=== PATIENT | male | born 1975 | race Caucasian/White ===

== ENCOUNTER 2021-02-28 06:26 | Emergency (ER) | payer MEDICAID, SELFPAY ==
[2021-02-28] VITALS (9 sets, daily range): BP systolic 98–126; BP diastolic 58–79; PULSE 82–92; RESP 15–16; TEMP 36.5; O2SAT 96–98; BMI 22.3
--- NOTE | 2021-02-28 06:33 | HMH.EDGENADL ---
ED Disposition Clinical Impression: Heroin overdose Qualifiers: Encounter type: initial encounter Injury intent: accidental or unintentional Qualified Code(s): T40.1X1A - Poisoning by heroin, accidental (unintentional), initial encounter Disposition: Home, Self-Care Condition on Discharge: Good Instructions: DI for Drug Overdose in Adults Additional Instructions: Follow-up with your primary care provider, call for appointment. Referrals: Provider,Referral, [Primary Care Provider] - - Critical Care Critical Care Time: No Attestation: On , the high probability of a clinically significant, sudden or life threatening deterioration of the following system(s) required my full and direct attention, intervention and personal management. The time I documented below is in addition to time spent performing reported procedures but includes the following listed in this critical care notation. Medical Decision Making - Gurvinder Inquiry Pt receiving controlled substance: No Vital Signs: 02/28/21 06:15 Temperature 97.7 F Temperature Source Oral Pulse Rate [Right] 92 H Respiratory Rate 15 Blood Pressure [Right Arm] 102/67 L Blood Pressure Mean [Right Arm] 78 Blood Pressure Source [Right Arm] Automatic Cuff 02 Sat by Pulse Oximetry 97 Oxygen Delivery Method Room Air Orders (Tests/Meds): ED MEDICATIONS Discontinued Medications Generic Name Dose Route Start Last Admin Trade Name Freq PRN Reason Stop Dose Admin Naloxone HCl 2 mg 02/28/21 06:50 02/28/21 06:22 Naloxone 2mg/2ml Syringe IV 02/28/21 06:51 2 mg ONCE ONE Administration - Reevaluation(s) Time: 07:12 Reevaluation #1: Patient states he has warmed up. Declines breakfast. Pulse ox 98%. Responds appropriately. Time: 07:52 Reevaluation #3: Pulse ox 98%. Heart rate 89. Answers questions appropriately. Complains that his knees are sore. Knees are unremarkable on exam. No effusions, erythema, edema, or ecchymosis. Normal neurovascular status in both lower extremities. Good pulses, capillary refill, sensation. Has some tenderness to the lateral aspect of his left foot. I suspect his legs are sore from laying on the floor but no signs of compartment syndrome or any other significant condition. Offered breakfast and he accepts. At shift change nursing staff advised that once patient is ambulatory he can be discharged. General Adult HPI - General Chief complaint: Overdose Stated complaint: overdose Time Seen by Provider: 02/28/21 06:26 Mode of Arrival: EMS Limitations: No Limitations Description of Symptoms (Recalled from ER Triage Doc. by RN): Per EMS, pt was found unresponsive in the bathroom and his father attempted CPR. EMS arrived and gave 4mg Narcan IN. He began to have agonal breaths. EMS then gave 0.5mg IVP Narcan and pt responded and awoke. Pt reports he shot up heroin tonight and sometimes does meth. He denies any n/v. He reports to being cold. He states I guess I just want checked out make sure I'm ok . Pt asks staff to call his dad. Pt is able to answer questions but does need encourgament. - History of Present Illness HPI narrative: Brought in by ambulance for heroin overdose. Patient admits to doing heroin, he thinks it was at 5 AM. He was found unresponsive by his father. He was given Narcan intranasally, 4 mg, followed by Narcan 0.5 mg intravenously by EMS and he regained consciousness. He complains of feeling cold and his feet hurt, otherwise he has no complaints. He has not recently been ill. He states that he did not use any other drugs tonight nor drink alcohol, but does sometimes use methamphetamine. He is on no prescription medications and does not have a primary care provider. He is a smoker. He has been through drug rehab in the distant past. - Related Data Home Medications Medication Instructions Recorded Confirmed No Known Home Medications 02/28/21 02/28/21 Allergies Allergy/AdvReac
--- NOTE | 2021-02-28 08:32 | PC.NURSE ---
Pt breakfast set up
== END 2021-02-28 10:25 | disposition home or self-care (01) ==
PROVIDERS: Emergency Provider Emergency Medicine
DX: T40.1X1A Poisoning by heroin, accidental (unintentional), initial encounter (principal)
CPT/HCPCS: 96374; 99281; J2310

== ENCOUNTER 2021-05-18 17:49 | Emergency (ER) | payer MEDICAID, SELFPAY ==
[2021-05-18 17:55] VITALS: BP 150/78; PULSE 98; RESP 16; TEMP 37; O2SAT 97; BMI 25.1
[2021-05-18 18:20] VITALS: BP 107/70; PULSE 95; RESP 18; TEMP 37; O2SAT 97; BMI 23.0
--- NOTE | 2021-05-18 18:46 | HMH.EDUTC ---
[facility] [place] Clinical Impression: Contact dermatitis Qualifiers: Contact dermatitis type: unspecified Contact dermatitis trigger: unspecified trigger Qualified Code(s): L25.9 - Unspecified contact dermatitis, unspecified cause Disposition: Home, Self-Care Condition on Discharge: Good Instructions: Contact Dermatitis, DI for Contact Dermatitis, Hydrocortisone Topical Additional Instructions: Apply hydrocortisone to rash on back may help with itching Look around and see what may be causing you to itch or causing rash Return if needed Straight to ER if any life threatening symptoms Follow up with your Family Doctor if needed Prescriptions: Hydrocortisone [Hydrocortisone 1% Cream 30gm Tube] 1 applicatio TP BID 7 Days #30 gm Prescription Printed Referrals: Kirby Putnam MD [Primary Care Provider] - As needed Time of Disposition: 18:53 Medical Decision Making - Gurvinder Inquiry Pt receiving controlled substance: No Gurvinder was queried for this patient: No Vital Signs: 05/18/21 17:55 05/18/21 18:20 Temperature 98.6 F 98.6 F Temperature Source Oral Oral Pulse Rate [Right] 98 H 95 H Respiratory Rate 16 18 Blood Pressure [Right Arm] 150/78 H 107/70 L Blood Pressure Mean [Right Arm] 102 82 Blood Pressure Source [Right Arm] Automatic Cuff Blood Pressure Position [Right Arm] Sitting 02 Sat by Pulse Oximetry 97 97 Oxygen Delivery Method Room Air [facility] [place] - General Stated complaint: possible scabies on back Time Seen by Provider: 05/18/21 18:46 Mode of Arrival: Ambulatory Source of Information: Patient Limitations: No Limitations Description of Symptoms (Recalled from Triage Doc. by RN): pt c/o of sores on his upper back. areas are scabbed over. pt very jittery and moving around the room. HEENT Symptoms (Recalled from RN notes): No Resp Symptoms (Recalled from RN notes): No Skin Symptoms (Recalled from RN notes): Yes MS Symptoms (Recalled from RN notes): No Functional Status (Recalled from RN notes): wnl - History of Present Illness Provider Complaint: Patient states that he was downstairs in a basement sleeping on old bed and had his back against the wall States that he noticed he had a rash on his back and it itched and someone looked at it and said he may have scabies so he was worried - Related Data Previous Rx's Medication Instructions Recorded Hydrocortisone [Hydrocortisone 1% 1 applicatio TP BID 7 Days #30 gm 05/18/21 Cream 30gm Tube] Allergies Allergy/AdvReac Type Severity Reaction Status Date / Time No Known Allergies Allergy Unverified 05/29/17 14:23 - Worker's Comp Is this a Worker's Comp case?: No H History - Hepatitis A Screen Drug use history?: No High risk sexual behaviors?: No History of sexually transmitted infection?: No Currently employed?: No Childcare worker?: No Do you have indoor plumbing?: Yes Do you have electricity?: Yes Attestation statement:: This patient has been screened for Hepatitis A risk factors. I have reviewed the patient's past medical history: Yes ROS Obtained: Yes All systems reviewed & no additional complaints, Yes Systems reviewed as appropriate & no additional complaints - Constitutional Constitutional: Reports system reviewed and no additional complaints, except as docu, Denies body ache, Denies chills, Denies fever(s) - Eyes Eyes: Reports system reviewed and no additional complaints, except as docu - ENT Ears, Nose, Mouth, and Throat: Reports system reviewed and no additional complaints, except as docu - Cardiovascular Cardiovascular: Reports system reviewed and no additional complaints, except as docu - Respiratory Respiratory: Reports system reviewed and no additional complaints, except as docu - Gastrointestinal Gastrointestingal: Reports: system reviewed and no additional complaints, except as docu - Integumentary/Breasts Skin/Breast: Reports system reviewed and no additional complaints, except as docu, Report
[2021-05-18 18:54] VITALS: BP 107/70; PULSE 95; RESP 18; TEMP 37
== END 2021-05-18 18:56 | disposition home or self-care (01) ==
PROVIDERS: Emergency Provider Nurse Practitioner; PCP Family Medicine
DX: L25.9 Unspecified contact dermatitis, unspecified cause (principal); U07.1 COVID-19
CPT/HCPCS: 99202; G0463

== ENCOUNTER 2021-10-22 14:05 | Emergency (ER) | payer MEDICAID, SELFPAY ==
[2021-10-22 14:20] VITALS: BP 117/87; PULSE 89; RESP 19; TEMP 37.1; O2SAT 97; BMI 23.7
--- NOTE | 2021-10-22 14:49 | HMH.EDUTC ---
[facility] [place] Clinical Impression: Gastroenteritis Disposition: Home, Self-Care Condition on Discharge: Good Instructions: DI for Vomiting -- Adult, Ondansetron Additional Instructions: Drink plenty of fluids. Take tylenol or ibuprofen for pain or fever. Take the medications as directed. Follow up with your regular doctor. GO TO THE ER FOR ANY WORSENING SYMPTOMS Take the zofran as directed for nausea and vomiting Prescriptions: Ondansetron [Zofran 4mg ODT] 4 mg PO Q8HP PRN #20 tab PRN Reason: Nausea Transmission Status: Received by [id number] Referrals: Provider,Referral, [Primary Care Provider] - Forms: Work/School Release Time of Disposition: 16:14 Medical Decision Making - Medical Records Medical records reviewed: No: I reviewed the patient's medical records. - Gurvinder Inquiry Pt receiving controlled substance: No Vital Signs: 10/22/21 14:20 10/22/21 15:40 Temperature 98.7 F 98.7 F Temperature Source Oral Pulse Rate 89 Pulse Rate [Right Brachial] 89 Respiratory Rate 19 19 Blood Pressure 117/87 Blood Pressure [Right Arm] 117/87 Blood Pressure Mean [Right Arm] 97 Blood Pressure Source [Right Arm] Automatic Cuff Blood Pressure Position [Right Arm] Sitting 02 Sat by Pulse Oximetry 97 Oxygen Delivery Method Room Air - Lab Data Lab results reviewed: Yes: I reviewed the patient's lab results. Lab Results 10/22/21 15:05: WBC 6.0, RBC 4.80, Hgb 14.0 L, Hct 40.7 L, MCV 84.9, MCH 29.1, MCHC 34.3, RDW 15.6, Plt Count 393, MPV 7.9, Neut % (Auto) 65.7, Lymph % (Auto) 23.8, Andrew % (Auto) 6.4, Eos % (Auto) 2.5, Baso % (Auto) 1.7, Neut # (Auto) 4.0, Lymph # (Auto) 1.4, Andrew # (Auto) 0.4, Eos # (Auto) 0.2, Baso # (Auto) 0.1 10/22/21 15:05: Sodium 136, Potassium 4.1, Chloride 97 L, Carbon Dioxide 34 H, Anion Gap 9.1, BUN 14, Creatinine 0.80, Estimated Creat Clear 113, Estimated GFR 103, Est GFR ( Amer) 125, Glucose 115 H, Calcium 9.2, Amylase 71, Lipase 81 Result diagrams: 10/22/21 15:05 10/22/21 15:05 Orders (Tests/Meds): ED MEDICATIONS Discontinued Medications Generic Name Dose Route Start Last Admin Trade Name Freq PRN Reason Stop Dose Admin Sodium Chloride 1,000 mls @ 999 mls/hr 10/22/21 15:00 10/22/21 15:17 Sod Chlor 0.9% 1000ml Bag IV 10/22/21 16:00 999 mls/hr .Q1H1M ROBY Administration Ondansetron HCl 4 mg 10/22/21 15:08 10/22/21 15:17 Ondansetron 4mg/2ml Vial IV 10/22/21 15:09 4 mg ONCE ONE Administration [facility] [place] - General Stated complaint: stomach pain Time Seen by Provider: 10/22/21 14:49 Mode of Arrival: Ambulatory Source of Information: Patient Limitations: No Limitations Description of Symptoms (Recalled from Triage Doc. by RN): PATIENT C/O INTERMITTEN VOMITING X 1 MONTH AND WEAKNESS. HEENT Symptoms (Recalled from RN notes): No Resp Symptoms (Recalled from RN notes): No Skin Symptoms (Recalled from RN notes): No MS Symptoms (Recalled from RN notes): No Functional Status (Recalled from RN notes): WNL - History of Present Illness Provider Complaint: He states that he has been having abdominal pain for the past 2 days. HE has n/v also. HE has had episodes like this for the past month. - Related Data Previous Rx's Medication Instructions Recorded Hydrocortisone [Hydrocortisone 1% 1 applicatio TP BID 7 Days #30 gm 05/18/21 Cream 30gm Tube] Ondansetron [Zofran 4mg ODT] 4 mg PO Q8HP PRN #20 tab 10/22/21 Allergies Allergy/AdvReac Type Severity Reaction Status Date / Time No Known Allergies Allergy Unverified 05/29/17 14:23 - Worker's Comp Is this a Worker's Comp case?: No [facility] History - Hepatitis A Screen Attestation statement:: This patient has been screened for Hepatitis A risk factors. I have reviewed the patient's past medical history: Yes - Social History Alcohol Intake: never Occupational Status: other ROS Obtained: Yes All systems reviewed & no additiona
[2021-10-22 15:33] LABS: Basophils # 0.1 K/mm3 (0-0.2); Basophils % 1.7 % (0.1-2.0); Eosinophils # 0.2 K/mm3 (0.0-0.4); Eosinophils % 2.5 % (0.1-12.0); Hematocrit 40.7 % (42.0-52.0); Lymphocytes # 1.4 K/mm3 (0.7-4.5); Lymphocytes % 23.8 % (10-50); Mean Corpuscular HGB Conc 34.3 g/dL (31.8-35.4); Mean Corpuscular Hemoglobin 29.1 pg (27.0-31.2); Mean Corpuscular Volume 84.9 fl (80-94); Mean Platelet Volume 7.9 fl (7.4-10.4); Monocytes # 0.4 K/mm3 (0.1-1.0); Monocytes % 6.4 % (1.7-9.3); Neutrophils % 65.7 % (37.0-80.0); Platelet Count 393 K/mm3 (142-424); Red Cell Distribution Width 15.6 % (11.5-17.5)
[2021-10-22 15:35] LABS: Chloride 97 mmol/L (98-107); Potassium 4.1 mmoL/L (3.5-5.1); Sodium 136 mmol/L (136-145)
[2021-10-22 15:38] LABS: Amylase 71 U/L (30-110); Anion Gap 9.1 mEq/L (5-15); Blood Urea Nitrogen 14 mg/dl (9-20); Calcium 9.2 mg/dl (8.4-10.2); Carbon Dioxide 34 mmol/L (22.0-30.0); Creatinine Clearance Estimated 113 mL/min (50-200); Estimated Glomerular Filt Rate 103 ml/min (>60); GFR (African American) 125 ML/MIN (>60); Glucose 115 mg/dl (74-100); Lipase 81 U/L (23-300)
[2021-10-22 15:40] VITALS: BP 117/87; PULSE 89; RESP 19; TEMP 37.1; O2SAT 97
== END 2021-10-22 16:23 | disposition home or self-care (01) ==
PROVIDERS: Emergency Provider Nurse Practitioner Family
DX: K52.9 Noninfective gastroenteritis and colitis, unspecified (principal)
CPT/HCPCS: 80048; 82150; 83690; 85025; 96360; 96375; 99213; 99284; G0463; J2405

== ENCOUNTER 2024-08-06 18:52 | Emergency (ER) | payer MEDICAID, SELFPAY ==
[2024-08-06 18:53] VITALS: BP 108/59; PULSE 87; RESP 20; TEMP 36.5; O2SAT 99; BMI 22.3
[2024-08-06 19:02] VITALS: BP 108/59; PULSE 92; O2SAT 97
--- NOTE | 2024-08-06 19:05 | XR_ITS ---
PROCEDURE INFORMATION: Exam: XR Left Shoulder Exam date and time: 08/06/2024 7:01 PM Age: 49 years old Clinical indication: Pain; Shoulder; Left; Additional info: L shoulder pain TECHNIQUE: Imaging protocol: Radiologic exam of the left shoulder. Views: 2 or more views. COMPARISON: No relevant prior studies available. FINDINGS: Bones/joints: No fracture or dislocation. Moderate degenerative change of the glenohumeral joint. Soft tissues: Normal. IMPRESSION: 1. No acute findings. 2. Moderate degenerative change of the left glenohumeral joint.
--- NOTE | 2024-08-06 19:07 | ED_ITS ---
Discharge Plan Disposition Patient Disposition: Home, Self-Care Prescriptions Prescriptions: No Action hydrocortisone 28.4 GM cream 1 applicatio TP BID 7 Days Qty: 30 0RF Rx Instructions: apply to rash on back for itching ondansetron 4 MG tablet,disintegrating 4 mg PO Q8HP PRN (Reason: Nausea) Qty: 20 0RF Referrals Follow up/Referrals: Sandra Salazar APRN [Primary Care Provider] - See instructions Activity Restrictions/Add. Instructions Additional Instructions/Restrictions: At this time it was felt you are safe to be discharged home. If new or worsening symptoms please do not hesitate to return the emergency department. [facility] should be contacting you to schedule appointment 1 month from now, hopefully will get better on S[place] then but if not please maintain that follow-up. You are going to be seeing a provider by the last name of Mumtaz. Clinical Impressions Clinical Impression: Nerve palsy, Sunday night, Brachial plexopathy Print Language Print Language: Ecuadorean Discharge ED Provider: Rashaun Hayes General Adult HPI General Chief complaint: Extremity Injury, Upper Stated complaint: LT shoulder pain Time Seen by Provider: 08/06/24 18:56 History of Present Illness HPI narrative: Patient is a 49-year-old right handed male who presents emergency department for evaluation of limited ability to move his left upper extremity. Onset was subacute, 1 to 2 weeks ago he slipped on concrete overnight without moving and since then has had limited ability to abduct his left arm at the shoulder. Due to prolonged symptoms he became concerned and presents here for continued evaluation. No trauma. Related Data Previous Rx's ?Medication ?Instructions ?Recorded hydrocortisone 1 % topical cream 1 applicatio TP BID 7 days ##30 05/18/21 ondansetron 4 mg disintegrating 4 mg PO Q8HP PRN Nausea #20 tabs 10/22/21 tablet Allergies Allergy/AdvReac Type Severity Reaction Status Date / Time No Known Allergies Allergy Unverified 05/29/17 14:23 [facility] Disclaimer: The information contained in this section may have been updated after the patient was seen, as this information can be updated by other users. Social History Smoking Status: Current every day smoker alcohol intake: never current occupational status: other Travel in the last 8 weeks: None Have you lived/traveled outside [place] in past 30 days?: No Contact w/someone who lives/traveled outside US past 30 days?: No Exposure to someone with infectious disease in past 14 days?: No Do you have a fever (greater than 100.4 F or 38 C)?: No Have you tested positive for COVID-19: No Exposed to someone with COVID-19 in past 14 days?: No Do you have a sore throat?: No Do you have a cough?: No Do you have any weakness?: No Do you have any diarrhea?: No Are you experiencing any unusual bleeding?: No Do you have any muscle aches/pain?: No Do you have any abdominal pain?: No Are you experiencing loss of taste or smell?: No Other Medical History Have you received the Flu Vaccine for this season: No Have you received the Pneumonia Vaccine: No ROS Obtained: Yes Systems reviewed as appropriate & no additional complaints except as documented Physical Exam General General appearance: alert and in no apparent distress Head Head exam: atraumatic and normocephalic Eye Eye exam: Present PERRL ENT ENT exam: Present mucous membranes moist Neck Neck exam: Present normal inspection Chest Chest inspection: Present normal inspection and symmetric chest wall rise Respiratory Respiratory exam: Absent respiratory distress Cardiovascular Cardiovascular exam: Present regular rate and normal rhythm Extremities Exam Extremities exam: Present normal inspection and other (Palpable radial pulse on the left, 5 out of 5 marble coper strength, 5 out of 5 strength extension flexion at the wrist and elbow. Unable to abduct past 30 degrees at the shoulder. No deformity or erythema.) Neurological Exam Neurological exam: Present alert Psychiatric Psychiatric exam: Present normal affect Skin Skin exam: Present warm and dry Medical Decision Making Medical Records Screening: Per USPSTF and CDC recommendations, given the prevalence of disease in our region, it is our hospital?s policy to screen for HIV and viral Hepatitis for all patients aged 18 and over and those with ongoing risk factors. Gurvinder Inquiry Pt receiving controlled substance: No Vital Signs: 08/06/24 18:53 08/06/24 19:02 08/06/24 19:30 Temperature 97.7 F Temperature Source Oral Pulse Rate 92 H 68 Pulse Rate [Right] 87 Respiratory Rate 20 Blood Pressure 108/59 L 118/71 Blood Pressure [Right Arm] 108/59 L Blood Pressure Mean Blood Pressure Mean [Right Arm] 75 02 Sat by Pulse Oximetry 99 97 97 Oxygen Delivery Method Room Air Room Air Room Air 08/06/24 20:00 08/06/24 20:30 Temperature Temperature Source Pulse Rate 70 69 Pulse Rate [Right] Respiratory Rate Blood Pressure 122/75 120/75 Blood Pressure [Right Arm] Blood Pressure Mean 93 Blood Pressure Mean [Right Arm] 02 Sat by Pulse Oximetry 99 94 L Oxygen Delivery Method Room Air Room Air Orders (Tests/Meds): ORDERS Category Date Time Status Shoulder XR left minimum 2 views [XR shoulder LT min 2V Exams 08/06/24 19:05 Completed ] Stat Medical Decision Narrative: In summary patient is a 49-year-old male past medical history described above who presents emergency department for evaluation of left shoulder pain. Patient is hemodynamically stable nontoxic-appearing upon arrival, afebrile. Patient has a classic story for brachial plexus injury. X-ray will be obtained to ensure no shoulder injury and the case we discussed [facility] regarding outpatient management. X-ray informally interpreted by me, no acute fracture or dislocation. Formal read no acute findings moderate degenerative change of the left glenohumeral joint. Clinically patient has Sunday night palsy and the case was discussed with [facility] Dr. Colon who agrees outpatient management is appropriate which will be arranged at [facility]. Critical Care Critical Care Time Critical Care Time: No
--- NOTE | 2024-08-06 19:12 | PC.NURSE ---
Spoke with [facility] to set up an outpatient follow-up for this pt. awaiting a call back at this time.
[2024-08-06 19:30] VITALS: BP 118/71; PULSE 68; O2SAT 97
[2024-08-06 20:00] VITALS: BP 122/75; PULSE 70; O2SAT 99
--- NOTE | 2024-08-06 20:21 | PC.NURSE ---
Spoke with [facility] to see about getting an update on our ongoing case with them. Vanessa from [facility] said she would call us back as soon as she could and there are still a few cases ahead of us.
[2024-08-06 20:30] VITALS: BP 120/75; PULSE 69; O2SAT 94
--- NOTE | 2024-08-06 20:59 | PC.NURSE ---
speaking with [employer] at this time.
[2024-08-06 21:06] VITALS: BP 127/80; PULSE 77; RESP 20; TEMP 36.8; O2SAT 100
== END 2024-08-06 21:08 | disposition home or self-care (01) ==
PROVIDERS: Emergency Provider Emergency Medicine; PCP Nurse Practitioner
DX: H49.00 Third [oculomotor] nerve palsy, unspecified eye (principal)
CPT/HCPCS: 73030; 99283